=== PATIENT | male | born 1960 | race Caucasian/White ===

== ENCOUNTER 2022-01-04 09:33 | Outpatient (REF) | payer MEDICARE, MEDICAID, SELFPAY ==
--- NOTE | ~2022-01-04 | MR_ITS ---
EXAMINATION: MRI OF THE LUMBAR SPINE WITHOUT CONTRAST CLINICAL INFORMATION: L5-S1 radiculopathy. COMPARISON: CT abdomen and pelvis September 2018. TECHNIQUE: MRI of the lumbar spine was obtained using routine sequences without contrast. FINDINGS: VERTEBRAL BODIES AND PARASPINAL STRUCTURES: Vertebral bodies normally aligned with normal height. Degenerative disc changes at L5-S1 with minimal loss in disc height. Additional disc protrusion. Tarlov cysts present at the S2-S3 level. The paravertebral soft tissues normal. CONUS MEDULLARIS: Normal, terminating at the level of L1-L2. SPINAL LEVELS: T11-T12: Anterior disc bulging with endplate osteophytes. Central canal neural foramen are normal. T12-L1: Anterior disc bulging with endplate osteophytes. Central canal and neural foramina are normal. L1-L2: Normal. L2-L3: Normal L3-L4: Normal. L4-L5: Mild bilateral facet arthrosis. Disc normal. Neural foramina and central canal normal. L5-S1: Disc desiccation. Generalized bulging of the disc with prominent eccentric protrusion right central and right foraminal. This indents on the anterior lateral thecal sac and traversing right S1 nerve root in the lateral recess. There is ebeg-[id number]-pkoicdxm bilateral facet arthrosis. These degenerative changes result in qjft-[id number] narrowing the left neural foramina and moderate narrowing of the right neural foramina along with asymmetric narrowing of the central canal more prominent on the right. MR/MR lumbar spine wo con IMPRESSION: 1. Spondylosis of the visualized thoracolumbar spine. 2. Degenerative changes most prominent at the L5-S1 level resulting in narrowing of the central canal and neural foramina more prominent on the right and right neural foramina. Suspect mass effect on the traversing right S1 nerve root and possible mass effect on the exiting right L5 nerve root.
== END 2022-01-04 09:34 | disposition home or self-care (01) ==
LOC: HO.MRI 09:33
PROVIDERS: Visit Provider Nurse Practitioner Adult Health
DX: M54.16 Radiculopathy, lumbar region (principal); M51.36 Other intervertebral disc degeneration, lumbar region
CPT/HCPCS: 72148

== ENCOUNTER 2022-06-07 06:52 | Outpatient (REF) | payer MEDICARE, SELFPAY ==
[2022-06-07 07:48] LABS: Hematocrit 51.5 % (42.0-52.0); Hemoglobin 17.2 g/dl (14.0-18.0); Mean Corpuscular HGB Conc 33.4 g/dl (31.0-36.0); Mean Corpuscular Hemoglobin 29.5 pg (27.0-33.0); Mean Corpuscular Volume 88.2 fL (80.0-98.0); Mean Platelet Volume 10.6 fL (9.4-12.4); Platelet Count 178 X10*3/uL (160-400); Red Blood Count 5.84 X10*6/uL (4.60-5.80); Red Cell Distribution Width 13.7 % (11.0-16.0); White Blood Count 9.1 X10*3/uL (4.8-10.8)
[2022-06-07 07:58] LABS: Estimated Average Glucose 111 mg/dL; Hemoglobin A1c % 5.5 %
[2022-06-07 08:31] LABS: Alanine Aminotransferase 51 U/L (0-40); Albumin Level 4.1 g/dL (3.5-5.0); Alkaline Phosphatase 83 U/L (39-117); Anion Gap 14 (12-20); Aspartate Amino Transferase 27 U/L (5-37); Bilirubin Total 0.5 mg/dL (0.0-1.0); Blood Urea Nitrogen 17 mg/dL (9-16); Calcium 9.1 mg/dL (8.4-10.2); Carbon Dioxide 25 mmol/L (22-29); Chloride 107 mmol/L (96-108); Cholesterol 144 mg/dL; Estimated Glomerular Filt Rate > 60; Glucose Fasting 106 mg/dL (60-99); HDL Cholesterol 41 mg/dL; LDL Cholesterol Calculated 83 mg/dl; Potassium 4.9 mmol/L (3.3-5.1); Sodium 141 mmol/L (135-145); Total Protein 6.6 g/dL (6.5-8.0); Triglycerides 104 mg/dL
[2022-06-09 09:30] LABS: TSH reflex Free T4 0.84 uIU/mL (0.32-4.0); Vitamin D 25-OH Total 36.1 ng/mL (>30)
[2022-06-12 00:38] LABS: PSA, Ultra Sensitive 0.97 ng/mL
== END 2022-06-07 06:53 | disposition home or self-care (01) ==
LOC: HO.LAB 06:52
PROVIDERS: PCP Nurse Practitioner Family; Visit Provider Nurse Practitioner Family
DX: Z00.00 Encounter for general adult medical examination without abnormal findings (principal); Z12.5 Encounter for screening for malignant neoplasm of prostate
CPT/HCPCS: 36415; 80053; 80061; 82306; 83036; 84153; 84443; 85027

== ENCOUNTER 2023-09-01 06:14 | Outpatient (REF) | payer MEDICARE, SELFPAY ==
[2023-09-01 08:34] LABS: Alanine Aminotransferase 57 U/L (0-40); Aspartate Amino Transferase 30 U/L (5-37); Cholesterol 203 mg/dL (<200); HDL Cholesterol 39 mg/dL (>40); LDL Cholesterol Calculated 128 mg/dL (<100); Triglycerides 183 mg/dL (<150)
== END 2023-09-01 06:15 | disposition home or self-care (01) ==
LOC: HO.LAB 06:14
PROVIDERS: Visit Provider Internal Medicine Cardiovascular Disease
DX: E78.5 Hyperlipidemia, unspecified (principal)
CPT/HCPCS: 36415; 80061; 84450; 84460

== ENCOUNTER 2023-12-27 06:35 | Outpatient (REF) | payer MEDICARE, SELFPAY ==
[2023-12-27 07:52] LABS: Alanine Aminotransferase 43 U/L (0-40); Aspartate Amino Transferase 25 U/L (5-37); Cholesterol 200 mg/dL (<200); HDL Cholesterol 41 mg/dL (>40); LDL Cholesterol Calculated 140 mg/dL (<100); Triglycerides 96 mg/dL (<150)
== END 2023-12-27 06:36 | disposition home or self-care (01) ==
LOC: HO.LAB 06:35
PROVIDERS: Visit Provider Internal Medicine Cardiovascular Disease
DX: E78.5 Hyperlipidemia, unspecified (principal)
CPT/HCPCS: 36415; 80061; 84450; 84460

== ENCOUNTER 2024-09-12 06:33 | Outpatient (REF) | payer MEDICARE, SELFPAY ==
[2024-09-12 07:59] LABS: Cholesterol 195 mg/dL (<200); HDL Cholesterol 50 mg/dL (>40); LDL Cholesterol Calculated 126 mg/dL (<100); Triglycerides 98 mg/dL (<150)
== END 2024-09-12 06:34 | disposition home or self-care (01) ==
LOC: HO.LAB 06:33
PROVIDERS: Visit Provider Internal Medicine Cardiovascular Disease
DX: E78.5 Hyperlipidemia, unspecified (principal)
CPT/HCPCS: 36415; 80061

== ENCOUNTER 2024-09-25 08:26 | Outpatient (AMB) | payer MEDICARE, SELFPAY ==
[2024-09-25 08:30] VITALS: BP 128/88; PULSE 67; RESP 20; TEMP 36.6; O2SAT 95; BMI 37.0
--- NOTE | 2024-09-25 08:30 | MHC.PC.OV ---
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: Not Required per policy Accompanied by: Self / Same As Patient Allergies No Known Allergies [No Known Allergies*] Allergy (Verified 09/25/24 08:46) Medication List - Last Reconciled 09/25/24 by DAREN Ruano aspirin (Adult Aspirin Regimen) 81 mg PO DAILY berberine chloride mg PO metoprolol succinate ER 12.5 mg PO BID Tobacco use date assessed: 09/25/24 Dental Screening Dental Screen Date: 09/25/24 Did you have a dental visit in the last 12 months?: No Did you have a dental problem in the last 6 months where you did not have access to dental care?: No Was dental information given to patient?: No HPI annual exam / NADEEM DR Hernandez HPI Details Patient is a 63-year-old male presenting to transition care from Dr. Hernandez He is also due for his physical, which was not completed today, due the patient having concerns that he wanted to take care of first Reports breathing difficulties. Since a cold-like illness without full recovery in late February, he reports issues with taking deep breaths. Previously, another similar instance was treated successfully with inhalers. His COPD diagnosis complicates the chronicity of his symptoms. Environmental factors such as humidity and physical exertion exacerbate breathing difficulties. Despite tobacco use reduction, he continues with significant smoking habits. He manages nasal congestion with [id number] allergy medication. He reports that humid conditions worsen his respiratory condition. In addition, he seeks assistance for prescribed handicap plates due to multi-faceted musculoskeletal issues stemming from a fall in 2018, affecting the lower back with continuous pain, his right shoulder post-surgery, and partial lower limb numbness. He experiences chronic pain primarily managed with Tylenol, having discontinued previous corticosteroid injections. He reports completed heart surgery in 2016 but continues with related medications like metoprolol. He previously stopped taking atorvastatin, believed to affect cognitive function, instead transitioning to berberine with lifestyle adjustments for cholesterol management. [facility] Medical History (Updated 09/30/24 @ 23:13 by DAREN Ruano) FHx: cholecystectomy Myocardial infarction Surgical History H/O radiofrequency ablation (RFA) of nerve of lumbar spine Family History Father Heart attack Social History Household Members: Spouse Housing: House Alcohol intake: never Patient Tobacco Use Status: Current everyday Tobacco user Tobacco use type: Cigarette Cigarette Packs Per Day: 0.5 Cigarettes Per Day: 10 e-Cigarette/Vaping Use: Former Use Second Hand Smoke Exposure: No service: No Current occupational status: disabled Cognitive needs: No Hearing needs: No Vision needs: Yes (Glasses) Questionnaire PHQ-9 Over the last 2 weeks, how often have you been bothered by any of the following problems? 1. Little interest or pleasure in doing things: nearly every day 2. Feeling down, depressed, or hopeless: not at all 3. Trouble falling or staying asleep, or sleeping too much: not at all 4. Feeling tired or having little energy: not at all 5. Poor appetite or overeating: not at all 6. Feeling bad about yourself - or that you are a failure or have let yourself or your family down: not at all 7. Trouble concentrating on things, such as reading the newspaper or watching television: not at all 8. Moving or speaking so slowly that other people could have noticed. Or the opposite - being so fidgety or restless that you have been moving around a lot more than usual: not at all 9. Thoughts that you would be better off or of hurting yourself in some way: not at all Total score: 3 Depression Screening Interpretation: Negative Depression Screening Done: Yes 16882 - PHQ-9 Billing: Yes Source: Developed by Drs. Casa Jordan, Elza Trujillo, Rogerio Rubalcava and colleagues, with an educational vidhi from [employer]. Thrive Questionnaire Date Thrive assessed: 09/25/24 I am a: Patient What is your living situation today?: I have a steady place to live Within the past 12 months, did the food you bought not last and you didn't have the money to get more?: Never true Within the past 12 months, did you worry whether your food would run out before you got money to buy more?: Never true Do you have trouble paying for medicines?: No Do you have trouble getting transportation to medical appointments?: No Do you have trouble paying your heating and electricity bill?: No Do you have trouble taking care of your child, family member or friend?: No Do you have trouble with day-to-day activities such as bathing, preparing meals, shopping, managing finances, etc.?: No Are you currently unemployed and looking for a job?: No Are you interested in more education?: No Please select the resources that you would like help with: None Currently or been in a relationship where the following occur: No concerns reported THRIVE Score: 0 AUDIT C Alcohol Use Questionnaire (AUDIT-C) 1. How often do you have a drink containing alcohol?: Never Total Score: 0 Score Reviewed/Action Taken: No CHRISTO-7 AMB Questionnaire CHRISTO-7 Date CHRISTO - 7 assessed: 09/25/24 Feeling nervous, anxious, or on edge: 0 = Not at all Not being able to stop or control worryin = Not at all Worrying too much about different things: 0 = Not at all Trouble relaxin = Not at all Being so restless that it is hard to sit still: 0 = Not at all Becoming easily annoyed or irritable: 0 = Not at all Feeling afraid as if something awful might happen: 0 = Not at all Total CHRISTO-7 score (0-4 normal; 5-9 mild; 10-14 moderate; 15-21 severe): 0 Source: Developed by Drs. Casa Jordan, Elza Trujillo, Rogerio Rubalcava and colleagues, with an educational vidhi from [employer]. CHRISTO-7 Assessment Billing CHRISTO-7 Assessment Tool: CHRISTO-7 Assessment 83899 Review of Systems Const Denies headache(s) Eyes Denies loss of vision ENT Denies vertigo, Denies dizziness, Denies headache(s) and Denies sore throat Card Denies chest pain, Denies leg edema, Denies lightheadedness and Reports dyspnea (Seasonal-pollens affecting COPD) Resp Denies cough, Denies hemoptysis, Reports dyspnea (Seasonal-pollens affecting COPD) and Denies wheezing GI Denies abdominal pain, Denies melena, Denies constipation, Denies diarrhea and Denies vomiting Denies dysuria, Denies urinary frequency and Denies urinary urgency Musc Reports back pain (Lower back), Reports arthralgias (Right shoulder and left shoulder), Denies joint swelling, Reports numbness (Bilateral feet) and Denies tingling Neuro Denies Abnormal speech present, Denies behavioral changes, Denies vertigo, Denies dizziness, Denies headache(s), Denies loss of vision, Denies memory loss, Reports numbness (Bilateral feet) and Denies tingling Psych Denies anxiety, Denies behavioral changes, Denies depression, Denies memory loss and Denies panic attacks Anselmo/Lymph Denies easy bleeding and Denies easy bruising Aller/Immun Denies wheezing Physical exam (Primary Care) Vital Signs: Last Vital Signs Temp 97.8 F 09/25/24 08:30 Pulse 67 09/25/24 08:30 Resp 20 09/25/24 08:30 BP 128/88 09/25/24 08:30 Pulse Ox 95 09/25/24 08:30 Oxygen Delivery Method Room Air 09/25/24 08:30 BMI result Body Mass Index 37.0 Tobacco/Smoking Status: Tobacco use Status Tobacco use date assessed 09/25/24 09/25/24 08:42 Patient Tobacco Use Status Current everyday Tobacco 09/25/24 08:42 Tobacco use type Cigarette 09/25/24 08:42 e-Cigarette/Vaping Use Former Use 09/25/24 08:42 PHQ-9: PHQ-9 Score PHQ-9: Total score 3 09/25/24 09:09 Depression Screening Interpretation: Negative Thrive Assessment: Date of Thrive Assessment Date Thrive assessed 09/25/24 09/25/24 08:42 Currently or been in a relationship where the following occur: No concerns reported Const General: healthy appearing, no acute distress, alert and awake Nutritional Appearance: well nourished Orientation/consciousness: oriented to person, oriented to place and oriented to time HENMT Ears: TM's normal bilaterally General nose exam: Normal nasal mucous membranes and turbinates present Eyes Conjunctivae: conjunctivae normal Sclerae: sclerae normal Pupils: Equal, round and reactive pupils present Neck Neck: Yes no lymphadenopathy and Yes no JVD Thyroid: Thyroid normal Carotids: no bruits Resp Effort & Inspection: normal respiratory effort and not tachypneic Auscultation: no crackles, no rales, no rhonchi, no wheezes and diminished lung sounds bilateral in the lower lung thomas Cardio Rate: regular rate Rhythm: regular rhythm Heart sounds: no murmurs and normal S1 and S2 GI Palpation (GI): Soft to palpation, nontender, no hepatomegaly and no splenomegaly Auscultation: normal bowel sounds General: Yes no CVA tenderness Back/Spine/Pelvis Back: no CVA tenderness Thoracic/Lumbar Spine: lumbar spinal tenderness Skin General skin exam: no rashes or lesions noted and dry skin Neuro General: oriented to person, oriented to place and oriented to time Cranial nerves: Yes Equal, round and reactive pupils present Speech: No Abnormal speech present Gait exam (Neuro): Normal gait present Motor exam (neuro): no tremor noted Extrem Right upper extremity: full ROM and shoulder/upper arm Details: tenderness Location: of the A-C joint and of the mid-shaft humerus and abnormal ROM (4/5 in strength) Details: pain with active ROM Left upper extremity: full ROM and shoulder/upper arm (4/5 in strength) Details: no tenderness Right lower extremity: full ROM; no edema Left lower extremity: full ROM; no edema Psych Mental Status: mental status grossly normal Speech and movement: Normal speech and movement present Affect: normal affect Attitude: cooperative Thought process: Normal thought process present Coding Level of Care Code Est Pt Level 4 (25517) Diagnoses Hypertension, unspecified type I10 Hypertension type: unspecified Obesity (BMI 30-39.9) E66.9 Chronic obstructive pulmonary disease, unspecified COPD type J44.9 COPD type: unspecified COPD Mixed hypercholesterolemia and hypertriglyceridemia E78.2 Smoker F17.200 Chronic bilateral low back pain without sciatica M54.50; G89.29 Back pain laterality: bilateral Sciatica presence: without sciatica Myocardial infarction, unspecified [place] type, unspecified artery I21.9 Myocardial infarction type: unspecified Involved coronary artery: unspecified coronary artery Chronic pain of both shoulders M25.511; M25.512; G89.29 Additional Codes CHRISTO-7 Assessment Billing - CHRISTO-7 Assessment Tool: CHRISTO-7 Assessment 82933 ([id number]) PHQ-9 - 35514 - PHQ-9 Billing: Yes ([id number]) Time Spent (min) 42 Assessment & Plan Assessment & Plan (1) Hypertension: Code(s): I10 - Essential (primary) hypertension Category: Medical Qualifiers: Hypertension type: unspecified Qualified Code(s): I10 - Essential (primary) hypertension Plan: Blood pressure 128/88-goal systolic less than 130 mmHg Encouraged DASH diet and activity as tolerated-goal systolic is less than 130 mmhg Refrain from alcohol use and if you smoke, smoking cessation is strongly advised Continue metoprolol succinate ER 12.5 mg b.i.d. (2) Obesity (BMI 30-39.9): Code(s): E66.9 - Obesity, unspecified Category: Medical Plan: Discussed lifestyle modifications including dietary changes and physical activity (3) COPD (chronic obstructive pulmonary disease): Code(s): J44.9 - Chronic obstructive pulmonary disease, unspecified Category: Medical Qualifiers: COPD type: unspecified COPD Qualified Code(s): J44.9 - Chronic obstructive pulmonary disease, unspecified Plan: Reinforced increase difficulty taking deep breaths Reports recurrent shortness of breath around this season The patient is a smoker, reports that he had cut down significantly He only has he rescue inhaler. He does not have a side stapler and declined being referred Advair Diskus 250-50 mcg/dose 1inh b.i.d. ordered. We will refill albuterol sulfate 90 mcg/actuation 2 puffs inh q.4-q.6 H p.r.n. Patient to contact office if symptoms are not improving or worsening (4) Mixed hypercholesterolemia and hypertriglyceridemia: Code(s): E78.2 - Mixed hyperlipidemia Category: Medical Plan: Triglycerides 98, total cholesterol 195 decreased from 200, LDL 126 decreased from 140, HDL 50 increased from 41. Discussed lifestyle modifications including dietary changes and physical activity Patient used to be on 80 mg of atorvastatin he has self discontinued this medication and started berberine chloride 500 mg OTC We will monitor lipid panel closely (5) Smoker: Code(s): F17.200 - Nicotine dependence, unspecified, uncomplicated Category: Social Hx Plan: Encouraged smoking cessation (6) Chronic low back pain: Code(s): M54.50 - Low back pain, unspecified; G89.29 - Other chronic pain Category: Medical Qualifiers: Back pain laterality: bilateral Sciatica presence: without sciatica Qualified Code(s): M54.50 - Low back pain, unspecified; G89.29 - Other chronic pain Plan: Lumbar MRI 2021: 1. Spondylosis of the visualized thoracolumbar spine. 2. Degenerative changes most prominent at the L5-S1 level resulting in narrowing of the central canal and neural foramina more prominent on the right and right neural foramina. Suspect mass effect on the traversing right S1 nerve root and possible mass effect on the exiting right L5 nerve root. constant pain in the lower back reports that he pain is always a 7 or higher he had a radio frequency ablation and cortisone shots in his back The shots would only last for a while, and would cause him to be depressed when the pain returned He stopped taking gabapentin 300mg TID Not interested in seeing any back specialist at this time Continue to monitor the patient with only Tylenol OTC as needed (7) Myocardial infarction: Comment: 2016 status post stenting Code(s): I21.9 - Acute myocardial infarction, unspecified Category: Medical Qualifiers: Myocardial infarction type: unspecified Involved coronary artery: unspecified coronary artery Qualified Code(s): I21.9 - Acute myocardial infarction, unspecified Plan: Status post stenting Continue aspirin 81 mg daily Patient has stopped atorvastatin 80 mg daily Stating risks of decreased cognitive function with atorvastatin He started Berberine 500 mg daily Follow up with Cardiology as scheduled He has been seeing [facility], Dr. Ayala (8) Chronic pain of both shoulders: Code(s): M25.511 - Pain in right shoulder; M25.512 - Pain in left shoulder; G89.29 - Other chronic pain Category: Medical Plan: Right shoulder has 6 pins in it, injured the same time when he injured his back unable to left shoulder all to a 90 degrees without severe pain Left shoulder in 2017- s/p fall landed with bad and causing injury pain is less than right shoulder pain, similarly the ROM in better managing pain conservatively-PRN Tylenol Not interesting in any speciality at this time reports being evaluated and treated multiple times still no great improvements May use warm or cold compress alternatively Will continue to monitor pt to contact office if he change his mind about seeing ortho Orders: Orders Complete Blood Count Auto Diff 09/25/24 E66.9 - Obesity, unspecified, G89.29 - Other chronic pain, I10 - Essential (primary) hypertension, J44.9 - Chronic obstructive pulmonary disease, unspecified, M25.511 - Pain in right shoulder, M25.512 - Pain in left shoulder, M54.50 - Low back pain, unspecified Comprehensive [place]. Panel Fast 09/25/24 E66.9 - Obesity, unspecified, G89.29 - Other chronic pain, I10 - Essential (primary) hypertension, J44.9 - Chronic obstructive pulmonary disease, unspecified, M25.511 - Pain in right shoulder, M25.512 - Pain in left shoulder, M54.50 - Low back pain, unspecified Vitamin D 25-OH Total 09/25/24 E66.9 - Obesity, unspecified, G89.29 - Other chronic pain, I10 - Essential (primary) hypertension, J44.9 - Chronic obstructive pulmonary disease, unspecified, M25.511 - Pain in right shoulder, M25.512 - Pain in left shoulder, M54.50 - Low back pain, unspecified TSH reflex Free T4 09/25/24 E66.9 - Obesity, unspecified, G89.29 - Other chronic pain, I10 - Essential (primary) hypertension, J44.9 - Chronic obstructive pulmonary disease, unspecified, M25.511 - Pain in right shoulder, M25.512 - Pain in left shoulder, M54.50 - Low back pain, unspecified UA CC w/rflx Micro + Cult 09/25/24 E66.9 - Obesity, unspecified, G89.29 - Other chronic pain, I10 - Essential (primary) hypertension, J44.9 - Chronic obstructive pulmonary disease, unspecified, M25.511 - Pain in right shoulder, M25.512 - Pain in left shoulder, M54.50 - Low back pain, unspecified Medications: New albuterol sulfate 90 mcg/actuation 2 puffs inhalation Q4-6H PRN 8.5 grams 3RF shortness of breath or wheezing fluticasone propion-salmeterol 250-50 mcg/dose (Advair Diskus) 1 inh inhalation BID 60 ea 3RF J44.9 - Chronic obstructive pulmonary disease, unspecified
== END 2024-09-25 09:18 | disposition home or self-care (01) ==
LOC: HO.HMCH 08:27
DX: J44.9 Chronic obstructive pulmonary disease, unspecified (principal); I25.2 Old myocardial infarction; E66.9 Obesity, unspecified; Z68.37 Body mass index [BMI] 37.0-37.9, adult; I10 Essential (primary) hypertension; E78.2 Mixed hyperlipidemia; F17.200 Nicotine dependence, unspecified, uncomplicated; M54.50 Low back pain, unspecified; G89.29 Other chronic pain; M25.511 Pain in right shoulder; M25.512 Pain in left shoulder

== ENCOUNTER → 2024-09-25 08:26 | Outpatient (BNVA) | payer MEDICARE, SELFPAY | DX: I10 Essential (primary) hypertension (principal); E66.9 Obesity, unspecified; J44.9 Chronic obstructive pulmonary disease, unspecified; E78.2 Mixed hyperlipidemia; M54.50 Low back pain, unspecified; G89.29 Other chronic pain; I21.9 Acute myocardial infarction, unspecified; M25.511 Pain in right shoulder; M25.512 Pain in left shoulder | CPT/HCPCS: 96127; 99212 ==

== ENCOUNTER 2024-11-16 06:45 | Outpatient (REF) | payer MEDICARE, SELFPAY ==
[2024-11-16 06:54] LABS: MANUAL DIFF FLAG NO
[2024-11-16 07:08] LABS: Hematocrit 50.8 % (42.0-52.0); Hemoglobin 16.9 g/dl (14.0-18.0); Imm Gran Abs Auto 0.08 X10*3/uL (0.00-0.03); Imm Gran Pct Auto 1.0 % (0.0-0.4); Lymphocytes Absolute Auto 2.6 X10*3/uL (1.2-4.9); Mean Corpuscular HGB Conc 33.3 g/dl (31.0-36.0); Mean Corpuscular Hemoglobin 29.0 pg (27.0-33.0); Mean Corpuscular Volume 87.3 fL (80.0-98.0); NRBC Abs Auto 0.000 X10*3/uL (0.0-0.012); NRBC Pct Auto 0.0 /100WBC (0.0-0.2); Platelet Count 176 X10*3/uL (160-400); Red Blood Count 5.82 X10*6/uL (4.60-5.80); White Blood Count 8.1 X10*3/uL (4.8-10.8)
[2024-11-16 07:34] LABS: Appearance Urine Clear; Glucose Urine UA Negative (Negative); PH 5.5 (5.0-9.0); Specific Gravity - Urine 1.025 (1.005-1.025)
[2024-11-16 07:40] LABS: Alanine Aminotransferase 44 U/L (0-40); Albumin Level 4.4 g/dL (3.5-5.0); Alkaline Phosphatase 77 U/L (39-117); Anion Gap 11 (12-20); Aspartate Amino Transferase 27 U/L (5-37); Blood Urea Nitrogen 17 mg/dL (9-16); Calcium 8.9 mg/dL (8.4-10.2); Carbon Dioxide 27 mmol/L (22-29); Chloride 105 mmol/L (96-108); Estimated Glomerular Filt Rate > 60; Potassium 4.2 mmol/L (3.3-5.1); Sodium 139 mmol/L (135-145); Total Protein 7.1 g/dL (6.5-8.0)
== END 2024-11-16 06:46 | disposition home or self-care (01) ==
LOC: HO.LAB 06:45
DX: J44.9 Chronic obstructive pulmonary disease, unspecified (principal); E66.9 Obesity, unspecified; I10 Essential (primary) hypertension; M54.50 Low back pain, unspecified; G89.29 Other chronic pain; M25.511 Pain in right shoulder; M25.512 Pain in left shoulder
CPT/HCPCS: 36415; 80053; 81003; 82306; 84443; 85025

== ENCOUNTER 2024-11-22 09:41 | Outpatient (AMB) | payer MEDICARE, SELFPAY ==
[2024-11-22 09:50] VITALS: BP 138/76; PULSE 71; RESP 18; TEMP 35.8; O2SAT 95; BMI 37.5
--- NOTE | 2024-11-22 09:50 | A.OFFPC_ITS ---
Vital Signs 11/22/24 09:50 Height 5 ft 10 in Weight 261 lb 2 oz BMI 37.5 BP 138/76 Blood Pressure Location Lt brachial Position Sitting Respiration 18 Pulse 71 Pulse Source Pulse Oximeter Temp 96.4 F L Temp Source Temporal Artery Scan Pulse Oximetry (%) 95 Oxygen Delivery Method Room Air Intake Visit Reasons: annual physical Mammography Technologist Required: No Accompanied by: Self / Same As Patient Allergies No Known Allergies (No Known Allergies*) Allergy (Verified 11/22/24 10:17) Medication List - Last Reconciled 11/22/24 by DAREN Ruano albuterol sulfate 90 mcg/actuation 2 puffs inhalation Q4-6H PRN aspirin (Adult Aspirin Regimen) 81 mg PO DAILY berberine chloride mg PO fluticasone propion-salmeterol 250-50 mcg/dose (Advair Diskus) 1 inh inhalation BID metoprolol succinate ER 12.5 mg PO BID Tobacco use date assessed: 11/22/24 Dental Screening Dental Screen Date: 11/22/24 Did you have a dental visit in the last 12 months?: No Did you have a dental problem in the last 6 months where you did not have access to dental care?: No Was dental information given to patient?: No HPI annual physical HPI Details Dentist:Reports he does not going to the dentist because he have dentures. Reports that he has few teeth left Eye: NO, reports that he has been planning on doing this, he usually goes every couple of years Snellen: Right: Left: Corrected vision:yes, glasses STI screening: Colonoscopy: Reports doing this once and said that he wont do this again. They found 8 polyps-he declining returning Pap Smer:n/a PHQ-9: Flu:decline-has not gotten this since the COVID: decline Tdap:decline Diet:regular Exercise:Not lately due to the pain second time meeting the patient, will have him return in 6 months, he wants to due a year, but will come back in 6 months, with plans to increase this to 1 year. The patient is a 64-year-old male presenting for a routine wellness visit and management of chronic conditions. The patient reports using dentures and has not visited a dentist recently due to lack of natural teeth. He only seeks dental care if there is a problem with the few remaining teeth. The patient has experienced respiratory improvement with medication, allowing for a more enjoyable summer despite hot and humid conditions. He reports no longer having breathing problems after starting the medication. The patient has elevated ALT levels, which have been consistent over the past year. He does not consume alcohol, which is typically associated with elevated liver enzymes. The patient reports musculoskeletal pain primarily in the back and shoulders, with occasional pain radiating down the legs. He describes the pain as persistent and impacting his ability to exercise. The patient refuses to undergo a colonoscopy, despite having had polyps removed in the past. He believes the procedure is unnecessary unless symptoms arise. Explained to the patient that symptoms could arise in the late stage of the disease and this could be too late. The patient has not received COVID-19 or flu vaccinations, citing a history of not getting sick as the reason. He also reports not having had a tetanus shot recently. The patient has not had an eye exam recently but plans to visit an barrel cleaner at a local optical store. [facility] Medical History FHx: cholecystectomy Myocardial infarction Surgical History H/O radiofrequency ablation (RFA) of nerve of lumbar spine Family History Father Heart attack Social History Household Members: Spouse Housing: House Alcohol intake: never Patient Tobacco Use Status: Current everyday Tobacco user Tobacco use type: Cigarette Cigarette Packs Per Day: 0.5 Cigarettes Per Day: 10 e-Cigarette/Vaping Use: Former Use Second Hand Smoke Exposure: No service: No Current occupational status: disabled Cognitive needs: No Hearing needs: No Vision needs: Yes (Glasses) Questionnaire PHQ-9 Over the last 2 weeks, how often have you been bothered by any of the following problems? 1. Little interest or pleasure in doing things: nearly every day 2. Feeling down, depressed, or hopeless: not at all 3. Trouble falling or staying asleep, or sleeping too much: not at all 4. Feeling tired or having little energy: not at all 5. Poor appetite or overeating: not at all 6. Feeling bad about yourself - or that you are a failure or have let yourself or your family down: not at all 7. Trouble concentrating on things, such as reading the newspaper or watching television: not at all 8. Moving or speaking so slowly that other people could have noticed. Or the opposite - being so fidgety or restless that you have been moving around a lot m ore than usual: not at all 9. Thoughts that you would be better off or of hurting yourself in some way: not at all Total score: 3 Depression Screening Interpretation: Negative Depression Screening Done: Yes Source: Developed by Drs. Casa Jordan, Elza Trujillo, Rogerio Rubalcava and colleagues, with an educational vidhi from [employer]. Thrive Questionnaire Date Thrive assessed: 11/22/24 I am a: Patient What is your living situation today?: I have a steady place to live Within the past 12 months, did the food you bought not last and you didn't have the money to get more?: Never true Within the past 12 months, did you worry whether your food would run out before you got money to buy more?: Never true Do you have trouble paying for medicines?: No Do you have trouble getting transportation to medical appointments?: No Do you have trouble paying your heating and electricity bill?: No Do you have trouble taking care of your child, family member or friend?: No Do you have trouble with day-to-day activities such as bathing, preparing meals, shopping, managing finances, etc.?: No Are you currently unemployed and looking for a job?: No Are you interested in more education?: No Please select the resources that you would like help with: None Currently or been in a relationship where the following occur: No concerns reported THRIVE Score: 0 AUDIT C Alcohol Use Questionnaire (AUDIT-C) 1. How often do you have a drink containing alcohol?: Never 3. How often do you have six or more drinks on one occasion?: Never Total Score: 0 Score Reviewed/Action Taken: No CHRISTO-7 AMB Questionnaire CHRISTO-7 Date CHRISTO - 7 assessed: 11/22/24 Feeling nervous, anxious, or on edge: 0 = Not at all Not being able to stop or control worryin = Not at all Worrying too much about different things: 0 = Not at all Trouble relaxin = Not at all Being so restless that it is hard to sit still: 0 = Not at all Becoming easily annoyed or irritable: 0 = Not at all Feeling afraid as if something awful might happen: 0 = Not at all Total CHRISTO-7 score (0-4 normal; 5-9 mild; 10-14 moderate; 15-21 severe): 0 Source: Developed by Drs. aCsa Jordan, Elza Trujillo, Rogerio Rubalcava and colleagues, with an educational vidhi from [employer]. Review of Systems Const Denies headache(s) Eyes Denies loss of vision ENT Denies vertigo, Denies dizziness, Denies headache(s) and Denies sore throat Card Denies chest pain, Denies leg edema, Denies lightheadedness and Reports dyspnea (Improved significantly after starting new inhaler) Resp Denies cough, Denies hemoptysis, Reports dyspnea (Improved significantly after starting new inhaler) and Denies wheezing GI Denies abdominal pain, Denies melena, Denies constipation, Denies diarrhea and Denies vomiting Denies dysuria, Denies urinary frequency and Denies urinary urgency Musc Reports back pain (Lower back), Reports arthralgias (Bilateral shoulders), Denies joint swelling, Reports numbness (Feet) and Denies tingling Neuro Denies Abnormal speech present, Denies behavioral changes, Denies vertigo, Denies dizziness, Denies headache(s), Denies loss of vision, Denies memory loss, Reports numbness (Feet) and Denies tingling Psych Denies anxiety, Denies behavioral changes, Denies depression, Denies memory loss and Denies panic attacks Anselmo/Lymph Denies easy bleeding and Denies easy bruising Aller/Immun Denies wheezing Physical exam (Primary Care) Vital Signs: Last Vital Signs Temp 96.4 F L 11/22/24 09:50 Pulse 71 11/22/24 09:50 Resp 18 11/22/24 09:50 BP 138/76 11/22/24 09:50 Pulse Ox 95 11/22/24 09:50 Oxygen Delivery Method Room Air 11/22/24 09:50 BMI result Body Mass Index 37.5 Tobacco/Smoking Status: Tobacco use Status Tobacco use date assessed 11/22/24 11/22/24 09:57 Patient Tobacco Use Status Current everyday Tobacco 11/22/24 09:57 Tobacco use type Cigarette 11/22/24 09:57 e-Cigarette/Vaping Use Former Use 11/22/24 09:57 PHQ-9: PHQ-9 Score PHQ-9: Total score 3 12/23/24 15:38 Depression Screening Interpretation: Negative Thrive Assessment: Date of Thrive Assessment Date Thrive assessed 11/22/24 11/22/24 09:57 Currently or been in a relationship where the following occur: No concerns reported Const General: healthy appearing, no acute distress, alert and awake Nutritional Appearance: well nourished Orientation/consciousness: oriented to person, oriented to place and oriented to time HENMT Ears: TM's normal bilaterally General nose exam: Normal nasal mucous membranes and turbinates present Eyes Conjunctivae: conjunctivae normal Sclerae: sclerae normal Pupils: Equal, round and reactive pupils present Neck Neck: Yes no lymphadenopathy and Yes no JVD Thyroid: Thyroid normal Carotids: no bruits Resp Effort & Inspection: normal respiratory effort and not tachypneic Auscultation: no crackles, no rales, no rhonchi and no wheezes Cardio Rate: regular rate Rhythm: regular rhythm Heart sounds: no murmurs and normal S1 and S2 GI Palpation (GI): Soft to palpation, nontender, no hepatomegaly and no splenomegaly Auscultation: normal bowel sounds Back/Spine/Pelvis Thoracic/Lumbar Spine: No lumbar spinal tenderness Skin General skin exam: no rashes or lesions noted and dry skin Neuro General: oriented to person, oriented to place and oriented to time Cranial nerves: Yes Equal, round and reactive pupils present Speech: No Abnormal speech present Gait exam (Neuro): Normal gait present Motor exam (neuro): no tremor noted Extrem Right upper extremity: full ROM and shoulder/upper arm (4/5) Details: tenderness Location: of the A-C joint and of the mid-shaft humerus and abnormal ROM Details: pain with active ROM; no swelling Left upper extremity: full ROM and shoulder/upper arm (4/5) Details: no tenderness Right lower extremity: full ROM; no edema Left lower extremity: full ROM; no edema Psych Mental Status: mental status grossly normal Speech and movement: Normal speech and movement present Affect: normal affect Attitude: cooperative Thought process: Normal thought process present Results Reviewed Results Reviewed: Laboratory Tests 09/12/24 11/16/24 11/16/24 06:44 06:49 06:53 Sodium 139 Potassium 4.2 Chloride 105 Carbon Dioxide 27 Anion Gap 11 L BUN 17 H Creatinine 1.00 Estimated GFR > 60 Fasting Glucose 109 H Calcium 8.9 Total Bilirubin 0.6 AST 27 ALT 44 H Alkaline Phosphatase 77 Total Protein 7.1 Albumin 4.4 Triglycerides 98 Cholesterol 195 LDL Cholesterol, Calc 126 H HDL Cholesterol 50 25-OH Vitamin D Total 94.0 TSH 1.07 Urine Color Yellow Urine Appearance Clear Urine pH 5.5 Ur Specific [place] 1.025 Urine Protein Negative Urine Glucose (UA) Negative Urine Ketones Negative Urine Blood Negative Urine Nitrite Negative Ur Leukocyte Esterase Negative Coding Level of Care Code Est Pt Prev Care 40-64y(98853) Diagnoses Physical exam, annual Z00.00 Hypertension, unspecified type I10 Hypertension type: unspecified Myocardial infarction, unspecified ME type, unspecified artery I21.9 Involved coronary artery: unspecified coronary artery Myocardial infarction type: unspecified Mixed hypercholesterolemia and hypertriglyceridemia E78.2 Obesity (BMI 30-39.9) E66.9 Chronic bilateral low back pain without sciatica M54.50; G89.29 Back pain laterality: bilateral Sciatica presence: without sciatica Chronic obstructive pulmonary disease, unspecified COPD type J44.9 COPD type: unspecified COPD Smoker F17.200 Chronic pain of both shoulders M25.511; M25.512; G89.29 Elevated ALT measurement R74.01 Time Spent (min) 39 Assessment & Plan Assessment & Plan (1) Physical exam, annual: Code(s): Z00.00 - Encounter for general adult medical examination without abnormal findings Category: Medical Plan: Preventative guidelines and recent labs reviewed with the patient. During the visit, I discussed the importance of continuing the respiratory medication, which has been effective in improving the patient's symptoms. We reviewed the elevated ALT levels and the need for ongoing monitoring, despite the patient's non-alcoholic status. I advised the patient to consider physical therapy for musculoskeletal pain management and encouraged reconsideration of a colonoscopy due to previous polyp removal. Vaccinations for COVID-19 and influenza were recommended, and the patient plans to have an eye exam at a local optical store. (2) Hypertension: Code(s): I10 - Essential (primary) hypertension Category: Medical Qualifiers: Hypertension type: unspecified Qualified Code(s): I10 - Essential (primary) hypertension Plan: Blood pressure 138/76-goal systolic less than 130 mmHg Encouraged DASH diet and activity as tolerated Refrain from alcohol use and if you smoke, smoking cessation is strongly advised Continue metoprolol succinate ER 12.5 mg b.i.d. (3) Myocardial infarction: Comment: 2017 status post stenting Code(s): I21.9 - Acute myocardial infarction, unspecified Category: Medical Qualifiers: Involved coronary artery: unspecified coronary artery Myocardial infarction type: unspecified Qualified Code(s): I21.9 - Acute myocardial infarction, unspecified Plan: Status post stenting Continue aspirin 81 mg daily Patient has stopped atorvastatin 80 mg daily Stating risks of decreased cognitive function with atorvastatin He started Berberine 500 mg daily Follow up with Cardiology as scheduled He has been seeing [facility], Dr. Ayala (4) Mixed hypercholesterolemia and hypertriglyceridemia: Code(s): E78.2 - Mixed hyperlipidemia Category: Medical Plan: Triglycerides 98, total cholesterol 195 decreased from 200, LDL 126 decreased from 140, HDL 50 increased from 41. Discussed lifestyle modifications including dietary changes and physical activity Patient used to be on 80 mg of atorvastatin he has self discontinued this medication and started berberine chloride 500 mg OTC We will monitor lipid panel closely (5) Obesity (BMI 30-39.9): Code(s): E66.9 - Obesity, unspecified Category: Medical Plan: Discussed lifestyle modifications including dietary changes and physical activity (6) Chronic low back pain: Code(s): M54.50 - Low back pain, unspecified; G89.29 - Other chronic pain Category: Medical Qualifiers: Back pain laterality: bilateral Sciatica presence: without sciatica Qualified Code(s): M54.50 - Low back pain, unspecified; G89.29 - Other chronic pain Plan: Lumbar MRI 2021: 1. Spondylosis of the visualized thoracolumbar spine. 2. Degenerative changes most prominent at the L5-S1 level resulting in narrowing of the central canal and neural foramina more prominent on the right and right neural foramina. Suspect mass effect on the traversing right S1 nerve root and possible mass effect on the exiting right L5 nerve root. constant pain in the lower back reports that he pain is always a 7 or higher he had a radio frequency ablation and cortisone shots in his back The shots would only last for a while, and would cause him to be depressed when the pain returned He stopped taking gabapentin 300mg TID Not interested in seeing any back specialist at this time Continue to monitor the patient with only Tylenol OTC as needed (7) COPD (chronic obstructive pulmonary disease): Code(s): J44.9 - Chronic obstructive pulmonary disease, unspecified Category: Medical Qualifiers: COPD type: unspecified COPD Qualified Code(s): J44.9 - Chronic obstructive pulmonary disease, unspecified Plan: Reports recurrent shortness of breath around this season The patient is a smoker, reports that he had cut down significantly He only had a rescue inhaler. He does not have a option trader and declined being referred Advair Diskus 250-50 mcg/dose 1inh b.i.d. was ordered on the previous visit- patient reports significant improvement. Continue albuterol sulfate 90 mcg/actuation 2 puffs inh q.4-q.6 H p.r.n. (8) Smoker: Code(s): F17.200 - Nicotine dependence, unspecified, uncomplicated Category: Social Hx Plan: Encouraged smoking cessation (9) Chronic pain of both shoulders: Code(s): M25.511 - Pain in right shoulder; M25.512 - Pain in left shoulder; G89.29 - Other chronic pain Category: Medical Plan: Right shoulder has 6 pins in it, injured the same time when he injured his back unable to left shoulder all to a 90 degrees without severe pain Left shoulder in 2017- s/p fall landed with bad and causing injury pain is less than right shoulder pain, similarly the ROM in better managing pain conservatively-PRN Tylenol Not interesting in any speciality at this time reports being evaluated and treated multiple times still no great improvements May use warm or cold compress alternatively Will continue to monitor pt to contact office if he change his mind about seeing ortho (10) Elevated ALT measurement: Code(s): R74.01 - Elevation of levels of liver transaminase levels Category: Medical Plan: ALT slightly elevated. Limit alcohol/medication containing Tylenol/fatty foods usage. We will continue to monitor Orders: Orders Lipid Panel 6 Months I10 - Essential (primary) hypertension, I21.9 - Acute myocardial infarction, unspecified, E78.2 - Mixed hyperlipidemia, E66.9 - Obesity, unspecified, M54.50 - Low back pain, unspecified, G89.29 - Other chron ic pain, J44.9 - Chronic obstructive pulmonary disease, unspecified, F17.200 - Nicotine dependence, unspecified, uncomplicated Vitamin D 25-OH Total 6 Months I10 - Essential (primary) hypertension, I21.9 - Acute myocardial infarction, unspecified, E78.2 - Mixed hyperlipidemia, E66.9 - Obesity, unspecified, M54.50 - Low back pain, unspecified, G89.29 - Other chronic pain, J44.9 - Chronic obstructive pulmonary disease, unspecified, F17.200 - Nicotine dependence, unspecified, uncomplicated Complete Blood Count Auto Diff 6 Months I10 - Essential (primary) hypertension, I21.9 - Acute myocardial infarction, unspecified, E78.2 - Mixed hyperlipidemia, E66.9 - Obesity, unspecified, M54.50 - Low back pain, unspecified, G89.29 - Other chronic pain, J44.9 - Chronic obstructive pulmonary disease, unspecified, F17.200 - Nicotine dependence, unspecified, uncomplicated Comprehensive [place]. Panel Fast 6 Months I10 - Essential (primary) hypertension, I21.9 - Acute myocardial infarction, unspecified, E78.2 - Mixed hyperlipidemia, E66.9 - Obesity, unspecified, M54.50 - Low back pain, unspecified, G89.29 - Other chronic pain, J44.9 - Chronic obstructive pulmonary disease, unspecified, F17.200 - Nicotine dependence, unspecified, uncomplicated UA CC w/rflx Micro + Cult 6 Months I10 - Essential (primary) hypertension, I21.9 - Acute myocardial infarction, unspecified, E78.2 - Mixed hyperlipidemia, E66.9 - Obesity, unspecified, M54.50 - Low back pain, unspecified, G89.29 - Other chronic pain, J44.9 - Chronic obstructive pulmonary disease, unspecified, F17.200 - Nicotine dependence, unspecified, uncomplicated TSH reflex Free T4 6 Months I10 - Essential (primary) hypertension, I21.9 - Acute myocardial infarction, unspecified, E78.2 - Mixed hyperlipidemia, E66.9 - Obesity, unspecified, M54.50 - Low back pain, unspecified, G89.29 - Other chronic pain, J44.9 - Chronic obstructive pulmonary disease, unspecified, F17.200 - Nicotine dependence, unspecified, uncomplicated Microalbumin, Random (w Creat) 6 Months I10 - Essential (primary) hypertension, I21.9 - Acute myocardial infarction, unspecified, E78.2 - Mixed hyperlipidemia, E66.9 - Obesity, unspecified, M54.50 - Low back pain, unspecified, G89.29 - Other chronic pain, J44.9 - Chronic obstructive pulmonary disease, unspecified, F17.200 - Nicotine dependence, unspecified, uncomplicated Patient Instructions: - Continue taking respiratory medication as prescribed. - Schedule a follow-up for liver enzyme monitoring. - Consider physical therapy for back and shoulder pain. - Reconsider scheduling a colonoscopy. - Get vaccinated for COVID-19 and influenza. - Plan an eye exam at a local optical store.
--- OUTSIDE RECORDS SUMMARY | 2024-11-22 10:09 | XMS_ITS | Encounter Summary ---
Author Organization [facility] Address [address] [place] [id number] Phone Care Team Providers Care Steam Train Driver Name Role Phone Lorin Serrano MD Primary Care Provider + [phone] Lorin Serrano MD Primary Care Provider + [phone] Encounter Details Date Type Department Care Team (Late st Contact Info) Description 03/23/2021 Procedure Pass [facility] Endoscopy Admitting Dept Virtual Department [address] [place] [address] Social History Tobacco Use Types Packs/Day Years Used Date Smoking Tobacco: Every Day Cigarettes 0.3 40 Smokeless Tobacco: Never Comments:tried vaping for 3 months Alcohol Use Standard Drinks/Week Comments Never 0 (1 standard drink = 0.6 oz pur e alcohol) Sex and Gender Information Value Date Recorded Sex Assigned at Not on file Legal Sex Male 9:44 PM EDT Gender Identity Not on file Sexual Orientation Not on file documented as of this encounter Plan of Treatment Not on file documented as of this encounter Visit Diagnoses Not on filedocumented in this encounter Care Teams Steam Train Driver Relationship Specialty Start Date End Date Lorin Serrano MD PCP - General Family Medicine 03/24/21 Lorin Serrano MD PCP - General Family Medicine 11/29/21 11/29/21 documented as of this encounter Additional Source Comments The information contained in this document represents components of the legal health record. It is not the complete legal health record.[facility]
== END 2024-11-22 10:42 | disposition home or self-care (01) ==
LOC: HO.HMCH 09:42
DX: Z00.00 Encounter for general adult medical examination without abnormal findings (principal); J44.9 Chronic obstructive pulmonary disease, unspecified; E66.9 Obesity, unspecified; Z68.37 Body mass index [BMI] 37.0-37.9, adult; I25.2 Old myocardial infarction; I10 Essential (primary) hypertension; E78.2 Mixed hyperlipidemia; M54.50 Low back pain, unspecified; G89.29 Other chronic pain; F17.200 Nicotine dependence, unspecified, uncomplicated; M25.511 Pain in right shoulder; M25.512 Pain in left shoulder

== ENCOUNTER → 2024-11-22 09:41 | Outpatient (BNVA) | payer MEDICARE, SELFPAY | DX: Z00.00 Encounter for general adult medical examination without abnormal findings (principal); I10 Essential (primary) hypertension; I21.9 Acute myocardial infarction, unspecified; E78.2 Mixed hyperlipidemia; E66.9 Obesity, unspecified; Z68.37 Body mass index [BMI] 37.0-37.9, adult; M54.50 Low back pain, unspecified; G89.29 Other chronic pain; J44.9 Chronic obstructive pulmonary disease, unspecified; M25.511 Pain in right shoulder; M25.512 Pain in left shoulder; R74.01 Elevation of levels of liver transaminase levels; F17.200 Nicotine dependence, unspecified, uncomplicated; Z71.6 Tobacco abuse counseling; Z71.3 Dietary counseling and surveillance | CPT/HCPCS: 99396 ==